=== PATIENT | male | born 1950 | race Hispanic/Latino ===

== ENCOUNTER 2018-03-18 12:39 | Day surgery (SDC) | payer MEDICARE ==
[~2018-03-18 12:39] MED LIST: ACET-2247 PO; BISA10SU8 RC; CARB-101 PO; CETI10CA5 PO; DIVA125C2 PO; FINA5TAB2 PO; FLUP25VI5 IJ; FOLI1TAB15 PO; HC1C1.5 TP; HYDR-3421 PO; INSU100V12 SQ; IPRA3AMP24 IH; LACT10SO PO; MULT-1278 PO; PIPE3.3712 IV; PRIM50TA23 PO; QUET400T PO; RISP2TAB22 PO; SENN8.6T90 PO; TAMS-1 PO; THIAM100TB PO; TRAZ150T79 PO; TRIA15OI6 TP; TYL3 PO; VANC1.2514 IV
--- NOTE | 2018-03-18 12:45 | NUR ---
ASSESSMENT RECEIVED PT FROM EMS- [facility]. PT APHASIC. UNRESPONSIVE. 02 AAT 2 L VIA [facility]. WOUND VAC IN PLACE TO RIGHT FOOT WITH PROTECTIVE BOOTY. NECROTIC ULCER TO LEFT FOOT. OPSITE IN PLACE DRY AND INTACT. HERE STATES PT HAS [place] DISEASE. DOES NOT SPEAK OR UNDERSTANDS. SHE IS POA. INCONTINENT.
--- NOTE | 2018-03-18 15:25 | NUR ---
TRANSFUSION BLOOD TRANSFUSION STARTED. PRE-VITALS TAKEN. NO DISTRESS NOTED. VS WITHIN BASELINE. AT BEDSIDE. LUNG SOUNDS CLEAR ON AUSCULTATION.
--- NOTE | 2018-03-18 16:26 | NUR ---
ASSESSMENT WHEN CHANGING DIAPER, SKIN BREAKDOWN NOTED TO MID SACRUM WITH CLEAR DRAINAGE. SKIN BREAKDOWN NOTED TO SWOLLEN, SCROTAL SAC WITH CLEAR DRSG. MADE AWARE. SHE WILL INFORM DR. SAN.
--- NOTE | 2018-03-18 17:09 | NUR ---
REPORT REPORT GIVEN TO Aditya BUTT LVN. INFORMED ON SKIN BREAKDOWN TO BOTH AREAS. INFORMED WOULD LET DR. SAN KNOW. WHEN BLOOD TRANSFUSION DONE. WILL CALL EMS FOR TRANSPORTATION.
--- NOTE | 2018-03-18 18:35 | NUR ---
TRANSFUSION TRANSFUSION COMPLETE. PT TOLERATED PROCEDURE WELL. LUNG SOUNDS CLEAR BILATERALLY. PT TAKEN BACK TO [facility] EMS. PT ON 02 @2 L VIA NC.
[2018-03-28] MEDS ORDERED: ACET650S30 RC (05:05)
[2018-03-28] MEDS ORDERED: PANT40SU PO (05:05)
[2018-03-28] MEDS ORDERED: HYDR-3421 PO (05:05)
[2018-03-28] MEDS ORDERED: DIPH30C TP (05:05)
[2018-03-28] MEDS ORDERED: GLUC1KIT3 IM (05:05)
[2018-03-28] MEDS ORDERED: SENN8.6T90 PO (05:05)
[2018-03-28] MEDS ORDERED: CEFE1VIA7 IJ (05:05)
[2018-03-28] MEDS ORDERED: DIVA125C2 PO (05:05)
[2018-03-28] MEDS ORDERED: VANC500F IV (05:05)
[2018-03-28] MEDS ORDERED: CALM120O TP (05:05)
[2018-03-28] MEDS ORDERED: CLOT15C TP (05:05)
[2018-03-28] MEDS ORDERED: BISA10S PR (05:05)
== END 2018-03-18 18:40 | disposition home health service (06) ==
LOC: SDC 12:39 → DAH 12:39 → SDC 18:40
PROVIDERS: ATTEND Internal Medicine
DX: Z51.89 Encounter for other specified aftercare (principal); M86.171 Other acute osteomyelitis, right ankle and foot; E11.621 Type 2 diabetes mellitus with foot ulcer; L97.419 Non-pressure chronic ulcer of right heel and midfoot with unspecified severity; G10 Huntington's disease; F02.81 Dementia in other diseases classified elsewhere, unspecified severity, with behavioral disturbance; F20.9 Schizophrenia, unspecified; G20 Parkinson's disease; R48.8 Other symbolic dysfunctions; M62.59 Muscle wasting and atrophy, not elsewhere classified, multiple sites; R27.8 Other lack of coordination; N40.0 Benign prostatic hyperplasia without lower urinary tract symptoms; K21.9 Gastro-esophageal reflux disease without esophagitis; E43 Unspecified severe protein-calorie malnutrition; F41.9 Anxiety disorder, unspecified; E78.5 Hyperlipidemia, unspecified; G89.0 Central pain syndrome; G47.00 Insomnia, unspecified
CPT/HCPCS: 36415; 36430; 82948; 86850; 86900; 86901; 86922 ×2; P9016